=== PATIENT | female | born 1985 | race African-American/Black ===

== ENCOUNTER 2020-04-03 17:00 | Emergency (ER) | payer MEDICAID, OTHER ==
[~2020-04-03] VITALS: Ht 154.9 cm; Wt 127.0 kg
--- NOTE | 2020-04-03 17:29 | PHYS DOC ---
General Adult EDM: Chief Complaint: ABDOMINAL PAIN HPI: HPI: Patient is a 35 year old AA female who presents to the emergency department with complaints of lower abdominal pain and increased urinary frequency that began 4 days ago. She denies any fever, cough, shortness of breath, body aches, fatigue, nausea, vomiting, diarrhea, or constipation. She reports that she had a bowel movement at midnight that was normal. She denies any irregular vaginal discharge or bleeding. Patient denies any dysuria, hematuria, or low back pain. She reports that the pain is intermittent, sharp, and crampy, she currently denies any pain but states that when the pain is present it is a 10 out of 10 on the pain scale, she denies any radiation of the pain. Review of Systems: Review of Systems: Constitutional: Denies fever or chills. [] HENT: Denies nasal congestion or sore throat. [] Respiratory: Denies cough or shortness of breath. [] Cardiovascular: Denies chest pain or edema. [] GI: Denies nausea, vomiting, bloody stools or diarrhea; see HPI : Denies dysuria; see HPI. [] Musculoskeletal: Denies back pain Integument: Denies rash. [] Neurologic: Denies headache Lymphatic: Denies swollen glands. [] Psychiatric: Denies depression or anxiety. [] Heart Score: Risk Factors: Risk Factors: DM, Current or recent (<one month) smoker, HTN, HLP, family history of CAD, obesity. Risk Scores: Score 0 - 3: 2.5% MACE over next 6 weeks - Discharge Home Score 4 - 6: 20.3% MACE over next 6 weeks - Admit for Clinical Observation Score 7 - 10: 72.7% MACE over next 6 weeks - Early Invasive Strategies Allergies: Allergies: Allergies Coded Allergies Type Severity Reaction Last Updated Verified latex Allergy Intermediate 12/17/13 Yes Physical Exam: PE: Constitutional: Well developed, well nourished, no acute distress, non-toxic appearance, obese. [] HENT: Normocephalic, atraumatic, bilateral external ears normal, nose normal. [] Eyes: PERRLA, EOMI, conjunctiva normal, no discharge. [] Neck: Normal range of motion, no stridor. [] Cardiovascular:Heart rate regular rhythm Lungs & Thorax: Respirations even and unlabored, no retractions, no respiratory distress Abdomen: soft, suprapubic tenderness with palpation, no rebound tenderness, no guarding Skin: Warm, dry, no erythema, no rash. [] Extremities: No cyanosis, ROM intact, no edema. [] Neurologic: Alert and oriented X 3, no focal deficits noted. [] Psychologic: Affect normal, judgement normal, mood normal. [] EKG: EKG: [] Radiology/Procedures: Radiology/Procedures: [] Course & Med Decision Making: Course & Med Decision Making Pertinent Labs and Imaging studies reviewed. (See chart for details) 35-year-old female presents to the emergency department with complaints of lower abdominal pain for the last 4 days. She also reported increased urinary frequency. CBC and CMP are unremarkable, UA is concerning for urinary tract infection. 1 g of IV Rocephin was given to the patient while in the emergency department, a prescription was written for Keflex 500 mg p.o. twice daily x7 days. Patient was instructed to increase clear fluids and avoid bladder irritants. Follow-up with primary care doctor if symptoms persist, return to the ER symptoms worsen or fever develops. Patient verbalized an understanding of home care, medications, follow-up, and return to ED instructions and was in agreement with the plan of care. [] Dragon Disclaimer: Dragon Disclaimer: This electronic medical record was generated, in whole or in part, using a voice recognition dictation system. Departure Departure Impression: Primary Impression: UTI (urinary tract infection) Qualified Codes: N39.0 - Urinary tract infection, site not specified; R31.9 - Hematuria, unspecified Disposition: 01 HOME, SELF-CARE Condition: STABLE Referrals: NO PCP (PCP) Patient Instructions: Urinary Tract Infection, [id number] Additional Instructions: Fill prescription(s) and use as directed. Avoid bladder irritants such as caffeine, carbonation, and spicy foods. Increase clear fluids. Follow up with your primary care doctor if symptoms persist, return to the ER if symptoms worsen. Scripts Cephalexin (CEPHALEXIN) 500 Mg Capsule 1 CAP PO BID for 7 Days, #14 CAP 0 Refills Prov: MARILU TORRES APRN 04/03/20 Justicifation of Admission Dx: Justifications for Admission: Justification of Admission Dx: N/A MARILU TORRES APRN Apr 03, 2020 17:29
[2020-04-03 18:42] LABS: BASO # 0.1 x10^3/uL (0.0-0.2); BASO % 1 % (0-3); EOS # 0.7 x10^3/uL (0.0-0.7); EOS % 10 % (0-3); HEMATOCRIT 35.7 % (36.0-47.0); HEMOGLOBIN 12.2 g/dL (12.0-15.5); LYMPH # 2.7 x10^3/uL (1.0-4.8); LYMPH % 39 % (24-48); MEAN CORPUSCULAR HEMOGLOBIN 24 pg (25-35); MEAN CORPUSCULAR HGB CONC 34 g/dL (31-37); MEAN CORPUSCULAR VOLUME 70 fL (79-100); MONO # 0.6 x10^3/uL (0.0-1.1); MONO % 9 % (0-9); NEUT # 2.9 x10^3/uL (1.8-7.7); NEUT % 42 % (31-73); PLATELET COUNT 460 x10^3/uL (140-400); RED BLOOD COUNT 5.13 x10^6/uL (3.50-5.40); RED CELL DISTRIBUTION WIDTH 19.8 % (11.5-14.5)
[2020-04-03 18:44] LABS: BILIRUBIN,URINE NEGATIVE (NEG); CLARITY,URINE CLEAR; COLOR,URINE YELLOW; NITRITE,URINE NEGATIVE (NEG); PH,URINE 5.5 (<5.0-8.0); PROTEIN,URINE NEGATIVE (NEG-TRACE); UROBILINOGEN,URINE 0.2 mg/dL (0.2 mg/dL)
[2020-04-03 18:57] LABS: CALCIUM 9.2 mg/dL (8.5-10.1); CREATININE 0.9 mg/dL (0.6-1.0); GFR 85.2; POTASSIUM 3.9 mmol/L (3.5-5.1)
[2020-04-03 19:00] LABS: ALBUMIN 3.7 g/dL (3.4-5.0); ALBUMIN/GLOBULIN RATIO 0.8 (1.0-1.7); MAGNESIUM 2.1 mg/dL (1.8-2.4); TOTAL BILIRUBIN 0.4 mg/dL (0.2-1.0); TOTAL PROTEIN 8.2 g/dL (6.4-8.2)
[2020-04-03 19:06] LABS: BACTERIA,URINE MODERATE /HPF (0-FEW); SQUAMOUS EPITHELIAL CELL,UR FEW /LPF; WBC,URINE 20-40 /HPF (0-4)
[2020-04-03 19:41] LABS: PLT ESTIMATE INCREASED (ADEQUATE)
[2020-04-03 19:42] LABS: MICROCYTOSIS SLIGHT
[2020-04-03] MEDS ORDERED: CEPH500C PO (20:01)
[2020-04-03 20:30] VITALS: BP 133/78
[2020-04-03] MEDS ORDERED: cefTRIAXone IV Push 1 GM VIAL. IVP ONE (20:30)
== END 2020-04-03 21:10 | disposition home or self-care (01) ==
LOC: ER 17:00
DX: N39.0 Urinary tract infection, site not specified (principal); R31.9 Hematuria, unspecified; R10.30 Lower abdominal pain, unspecified; R35.0 Frequency of micturition; Z91.040 Latex allergy status
CPT/HCPCS: 36415; 80053; 81001; 83690; 83735; 85025; 87086; 96374; 99283; J0696

== ENCOUNTER 2020-09-25 20:45 | Emergency (ER) | payer OTHER ==
[~2020-09-25] VITALS: Ht 154.9 cm; Wt 118.2 kg
[~2020-09-25 20:45] MED LIST: CEPH500C PO
[2020-09-25 20:55] VITALS: BP 165/89
[2020-09-26] MEDS ORDERED: predniSONE 20 MG TABLET PO ONE
[2020-09-26] MEDS ORDERED: IPRATRPIUM/ALBUTEROL 0.5/2.5MG 3 ML NEBU. NEB ONE
--- NOTE | 2020-09-26 00:03 | PHYS DOC ---
Past Medical History Past Medical History: Asthma Past Surgical History: , Tubal ligation, Other Additional Past Surgical Histo: Dental sx Smoking Status: Never Smoker Alcohol Use: None General Adult EDM: Chief Complaint: SHORTNESS OF BREATH HPI: HPI: Patient is a 35 year old female presents emergency department complaining of an asthma exacerbation that started at approximately 1900 today. Patient states that she used her albuterol inhaler twice and it got only minimal relief. Patient states that when she gets like this that she can usually turn around with nebulized treatments at the hospital and a short run of prednisone by mouth. Patient states that she has been admitted in the past for her asthma, stating that her last admission was approximately a year ago at [facility] however she states "I do not feel near that that this time "patient denies any chest pain, chest palpitations, recent fever chills, chest conge stion, nasal congestion, sore throat. Patient denies any other symptoms or physical complaints. Review of Systems: Review of Systems: 14 body systems of review of systems have been reviewed. See HPI for pertinent positives and negative responses, otherwise all other systems are negative, nonpertinent or noncontributory. Heart Score: Risk Factors: Risk Factors: DM, Current or recent (<one month) smoker, HTN, HLP, family history of CAD, obesity. Risk Scores: Score 0 - 3: 2.5% MACE over next 6 weeks - Discharge Home Score 4 - 6: 20.3% MACE over next 6 weeks - Admit for Clinical Observation Score 7 - 10: 72.7% MACE over next 6 weeks - Early Invasive Strategies Current Medications: Current Medications Medications (Trade) Dose Ordered Sig/Ar Start Time Stop Time Status Last Admin Dose Admin Albuterol/ Ipratropium (Duoneb) 3 ml 1X ONCE 09/26/20 00:00 09/26/20 00:01 UNV Prednisone (Prednisone) 60 mg 1X ONCE 09/26/20 00:00 09/26/20 00:01 UNV Allergies: Allergies: Allergies Coded Allergies Type Severity Reaction Last Updated Verified latex Allergy Intermediate 12/17/13 Yes Physical Exam: PE: Constitutional: Well developed, well nourished, non-toxic appearance. Patient in mild respiratory distress, can speak in full sentences, audible I/E wheezes HENT: Normocephalic, atraumatic, bilateral external ears normal, oropharynx moist, no oral exudates, nose normal. Eyes: PERRLA, EOMI, conjunctiva normal, no discharge. Neck: Normal range of motion, no tenderness, supple, no stridor. Cardiovascular:Heart rate regular rhythm, no murmur Lungs & Thorax: Bilateral breath sounds I/E wheezes to auscultation all lung seals. Abdomen: Bowel sounds normal, soft, no tenderness, no masses, no pulsatile masses. Skin: Warm, dry, no erythema, no rash. Back: No tenderness, no CVA tenderness. Extremities: No tenderness, no cyanosis, no clubbing, ROM intact, no edema. Neurologic: Alert and oriented X 3, normal motor function, normal sensory function, no focal deficits noted. Psychologic: Affect normal, judgement normal, mood normal. Current Patient Data: Vital Signs: Vital Signs Date Time Temp Pulse Resp B/P (MAP) Pulse Ox O2 Delivery O2 Flow Rate FiO2 09/25/20 20:55 98.7 103 24 165/89 (114) 97 Room Air 98.7 EKG: EKG: [] Radiology/Procedures: Radiology/Procedures: [] Course & Med Decision Making: Course & Med Decision Making Pertinent Labs and Imaging studies reviewed. (See chart for details) 35-year-old female presents emergency department with acute asthma exacerbation it started approximately 1900 on 09/25/2020. Patient states that she does not feel all that bad and feels that she can turn around with some nebulized treatments and started on p.o. prednisone. Patient was given 60 mg of p.o. prednisone, ipratropium bromide/albuterol nebulized treatment was initiated by RT, a portable chest x-ray was ordered. Will reevaluate patient after treatment is complete. Patient no longer in respiratory distress, light inspiratory/expiratory wheezes to auscultations and upper lobes, a second nebulizer treatment of albuterol was ordered. Upon reevaluation of the patient, patient states he feels much better and wishes to go home at this time. Lung sounds are clear to auscultate all lung seals. Patient gave verbal understanding of discharge home instructions, prescription instructions, return to emergency department cautions and concerns, patient had no further questions or concerns were discharged home without incident. Impression: #1 asthma exacerbation Ehsan Disclaimer: Ehsan Disclaimer: This electronic medical record was generated, in whole or in part, using a voice recognition dictation system. Departure Departure Impression: Primary Impression: Asthma attack Qualified Codes: J45.901 - Unspecified asthma with (acute) exacerbation Disposition: 01 DC HOME SELF CARE/HOMELESS Condition: IMPROVED Referrals: NO PCP (PCP) Patient Instructions: Asthma, Adult Additional Instructions: Take prescribed medications as directed, use your inhaler 2 puffs every 4 hours for the next 48 hours. Call your primary care physician tomorrow to make an appointment so that he can manage your asthma. Turn to the emergency department for worsening symptoms or other concerns. EMERGENCY DEPARTMENT GENERAL DISCHARGE INSTRUCTIONS Thank you for coming to [facility] Emergency Department (ED) today and trusting us with you care. We trust that you had a positive experience in our Emergency Department. If you wish to speak to the department management, you may call the Director at [phone]. YOUR FOLLOW UP INSTRUCTIONS ARE FOLLOWS: 1. Do you have a private Doctor? If you do not have a private doctor, please ask for a resource list of physicians or clinics that may be able to assist you with follow up care. 2. The Emergency Physicain has interpreted your x-rays. The X-Ray specialist will also review them. If there is a change in the findings, you will be notified in 48 hours when at all possible. 3. A lab test or culture has been done, your results will be reviewed and you will be notified if you need a change in treatment. ADDITIONAL INSTRUCTIONS AND INFORMATION: 1. Your care today has been supervised by a physician who is specially trained in emergency care. Many problems require more than one evaluation for a complete diagnosis and treatment. We recommend that you schedule your follow up appointment as recommended to ensure complete treatment of you illness or injury. If you are unable to obtain follow up care and continue to have a problem, or if your condition worsens, we recommend that you return to the ED. 2. We are not able to safely determine your condition over the phone nor are we able to give sound medical advice over the phone. For these safety reasons, if you call for medical advice we will ask you to come to the ED for further evaluation. 3. If you have any questions regarding these discharge instructions please call the ED at [phone]. SAFETY INFORMATION: In the interest of safety, wellness, and injury prevention; we encourage you to wear your sealbelt, if you smoke; quite smoking, and we encourage family to use a protective helmet for bicycling and other sporting events that present an increased risk for head injury. IF YOUR SYMPTOMS WORSEN OR NEW SYMPTOMS DEVELOP, OR YOU HAVE CONCERNS ABOUT YOUR CONDITION; OR IF YOUR CONDITION WORSENS WHILE YOU ARE WAITING FOR YOUR FOLLOW UP APPOINTMENT; EITHER CONTACT YOUR PRIMARY CARE DOCTOR, THE PHYSICIAN WHOSE NAME AND NUMBER YOU WERE GIVEN, OR RETURN TO THE ED IMMEDIATELY. Scripts Prednisone (PREDNISONE) 20 Mg Tablet 1 TAB PO DAILY for ASTHMA, #5 TAB 0 Refills Prov: CECILIA SONG APRN 09/26/20 CECILIA SONG APRN Sep 26, 2020 00:03
[2020-09-26] MEDS ORDERED: ALBUTEROL SULFATE 2.5 MG/3 ML NEBU. NEB ONE (00:30)
--- NOTE | 2020-09-26 00:37 | RAD ---
EXAM: AP View of the chest DATE: 09/25/2020 12:11 AM INDICATION: Reason: SHORT OF BREATH / Spl. Instructions: / History: COMPARISON: No Prior FINDINGS: The heart is not enlarged. Mediastinal and hilar contours are normal. No focal parenchymal airspace opacity. Left lower lung calcified granuloma 1.2 cm. No pleural effusion or pneumothorax. IMPRESSION: No radiographic evidence for acute cardiopulmonary process. Electronically signed by: Cyrus Dawson MD (09/26/2020 12:34 AM) HEATHER
[2020-09-26] MEDS ORDERED: PRED20TA PO (01:39)
== END 2020-09-26 01:47 | disposition home or self-care (01) ==
LOC: ER 20:45
DX: J45.901 Unspecified asthma with (acute) exacerbation (principal); Z98.51 Tubal ligation status; Z98.890 Other specified postprocedural states; Z91.040 Latex allergy status
CPT/HCPCS: 71045; 94640; 99284; J7512; J7613